=== PATIENT | female | born 1975 | race Two or more races ===

== ENCOUNTER 2023-04-14 14:11 | Emergency (ER) | payer OTHER ==
[~2023-04-14] VITALS: Ht 170.2 cm; Wt 65.8 kg
[2023-04-14] MEDS ORDERED: SINGULAIR4 M1 PO (14:55)
[2023-04-14] MEDS ORDERED: NAPROXEN500 MG PO (20:34)
== END 2023-04-14 20:41 | disposition home or self-care (01) ==
LOC: ER 14:11
PROVIDERS: General Practice
DX: R30.0 Dysuria (principal); R10.2 Pelvic and perineal pain